=== PATIENT | female | born 1995 | race Caucasian/White ===

== ENCOUNTER → 2024-07-13 | Outpatient (REF) | payer BC | LOC: M PLALAB 10:11 | PROVIDERS: ATTEND Advanced Practice Midwife | DX: Z53.9 Procedure and treatment not carried out, unspecified reason (principal) ==

== ENCOUNTER → 2024-07-22 | Outpatient (CLI) | payer OTHER ==
[2024-07-22 13:21] LABS: HEMATOCRIT 40.4 % (36.0-47.0); MEAN CORPUSCULAR HEMOGLOBIN 29.5 pg (27.0-33.0); MEAN CORPUSCULAR HGB CONC 34.7 g/dl (32.0-36.5); MEAN CORPUSCULAR VOLUME 85.2 fl (80.0-96.0); PLATELET COUNT, AUTOMATED 333 10^3/uL (150-450); RED BLOOD COUNT 4.74 10^6/uL (4.00-5.40); WHITE BLOOD COUNT 10.2 10^3/uL (4.0-10.0)
[2024-07-22 14:09] LABS: HIV 1&2 SCREEN NEGATIVE (NEGATIVE)
[2024-07-22 14:17] LABS: HEPATITIS C VIRUS ABY INDEX 0.02 INDEX (<0.8)
[2024-07-22 16:57] LABS: Trichomonas vaginalis (AMP) NOT DETECTED (NEGATIVE)
[2024-07-22 17:21] LABS: GC DNA AMPLIFICATION NEGATIVE (NEGATIVE)
== END ==
LOC: M PLALAB 11:40
PROVIDERS: ATTEND Advanced Practice Midwife
DX: Z34.01 Encounter for supervision of normal first pregnancy, first trimester (principal)

== ENCOUNTER → 2024-09-22 | Outpatient (CLI) | payer OTHER | LOC: M WHC 10:04 | PROVIDERS: ATTEND Nurse Practitioner Family | DX: Z34.02 Encounter for supervision of normal first pregnancy, second trimester (principal); Z3A.20 20 weeks gestation of pregnancy ==

== ENCOUNTER → 2024-11-05 | Outpatient (CLI) | payer OTHER ==
[2024-11-05 14:39] LABS: PLATELET COUNT, AUTOMATED 285 10^3/uL (150-450)
[2024-11-05 14:44] LABS: GLUCOSE CHALLENGE TEST 1 HOUR 69 MG/DL (LESS THAN 140)
[2024-11-05 15:08] LABS: Trichomonas vaginalis (AMP) NOT DETECTED (NEGATIVE)
[2024-11-05 15:18] LABS: HIV 1&2 SCREEN NEGATIVE (NEGATIVE)
[2024-11-05 15:26] LABS: HEPATITIS C VIRUS ABY INDEX 0.03 INDEX (<0.8)
[2024-11-05 15:32] LABS: GC DNA AMPLIFICATION NEGATIVE (NEGATIVE)
== END ==
LOC: M PLALAB 09:12
PROVIDERS: ATTEND Nurse Practitioner Family
DX: Z34.80 Encounter for supervision of other normal pregnancy, unspecified trimester (principal)

== ENCOUNTER → 2025-01-13 | Outpatient (REF) | payer OTHER, BC | LOC: M SFHCWAGY 13:15 | PROVIDERS: ATTEND Nurse Practitioner Family | DX: Z34.03 Encounter for supervision of normal first pregnancy, third trimester (principal) ==

== ENCOUNTER 2025-02-11 15:13 | Inpatient (IN) | payer BC, OTHER ==
[~2025-02-11] VITALS: Ht 160 cm; Wt 88.1 kg
[2025-02-11 15:28] VITALS: BP 137/90
[2025-02-11] MEDS ORDERED: PRENTAB9 PO (15:29)
[2025-02-11] MEDS ORDERED: PEPC1TAB5 PO (15:29)
[2025-02-11] MEDS ORDERED: HOME MED LIST COMPLETE! XX SCH (15:30)
[2025-02-11] MEDS ORDERED: LIDOCAINE 1% MDV 20 ML VIAL INFIL PRN (16:35)
[2025-02-11] MEDS ORDERED: OXYTOCIN DRIP 30 UNITS in IV 1 EA IV PRN (16:35)
[2025-02-11 16:52] VITALS: BP 133/88
[2025-02-11] MEDS: miSOPROStol 50 MCG 1/2 TABLET SL SCH (16:52)
[2025-02-11 17:22] LABS: TOTAL PROTEIN,RANDOM URINE 20.2 MG/DL (0.0-14.0)
[2025-02-11 18:04] VITALS: BP 132/72
[2025-02-11 18:51] LABS: LDH LACTATE DEHYDROGENASE 228 U/L (120-246); PLATELET COUNT, AUTOMATED 243 10^3/uL (150-450)
[2025-02-11 18:52] LABS: ALT/SGPT 12 U/L (7.0-40); AST/SGOT 22 U/L (<34); CREATININE FOR GFR 0.66 MG/DL (0.55-1.30); GLOMERULAR FILTRATION RATE > 90.0 (>60)
[2025-02-11 19:25] LABS: HIV 1&2 SCREEN NEGATIVE (NEGATIVE)
[2025-02-11 19:32] LABS: HEPATITIS C VIRUS ABY INDEX < 0.02 INDEX (<0.8)
[2025-02-11 20:33] VITALS: BP 125/77
[2025-02-11] MEDS: FAMOTIDINE 20 MG TAB PO ONE (21:01)
[2025-02-11 22:01] VITALS: BP 125/76
[2025-02-12] VITALS (36 sets, daily range): BP systolic 109–162; BP diastolic 58–94
[2025-02-12] MEDS ORDERED: CARBOPROST TROMETHAMINE 250 MCG/ML AMP IM PRN (09:15)
[2025-02-12] MEDS ORDERED: TRANEXAMIC ACID INJection 1,000 MG in NS 100 ML IV PRN (09:15)
[2025-02-12] MEDS ORDERED: METHYLERGONOVINE MALEATE 0.2 MG/ML 1 ML VIAL IM PRN (09:15)
[2025-02-12] MEDS: FAMOTIDINE 20 MG TAB PO SCH (09:48)
[2025-02-12] MEDS ORDERED: HOME MED LIST COMPLETE! XX SCH (10:05)
[2025-02-12] MEDS ORDERED: ONDANSETRON 4MG 2ML VIAL IV PRN (12:40)
[2025-02-12] MEDS ORDERED: EPIDURAL/PCA KEYS XX PRN (12:40)
[2025-02-12] MEDS ORDERED: diphenhydrAMINE 50 MG/ML VIAL IV PRN (12:40)
[2025-02-12] MEDS ORDERED: NALOXONE INJ 0.4 MG/1 ML VIAL IV PRN (12:40)
[2025-02-12] MEDS ORDERED: FENTANYL 2 MCG/ML ROPIVACAINE 0.2% IN 0.9% NACL 100 ML IVBAG As Ordered ONE (12:47)
[2025-02-12] MEDS: FENTANYL/ROPIVACAINE/NACL BAG 100 ML EPIDURAL SCH (12:50)
[2025-02-12] MEDS: LR 1,000 ML IV SCH (12:55)
[2025-02-12] MEDS: LR 500 ML IV PRN (12:55)
[2025-02-12] MEDS: OXYTOCIN DRIP 30 UNITS in IV 1 EA IV SCH (16:35)
[2025-02-13] VITALS (11 sets, daily range): BP systolic 120–149; BP diastolic 63–82; O2SAT 96–98
[2025-02-13] MEDS ORDERED: MOM 30 ML SUSPENSION UDC PO PRN (01:25)
[2025-02-13] MEDS ORDERED: ANUSOL HC CREAM 30 GM TOP PRN (01:25)
[2025-02-13] MEDS ORDERED: CALCIUM CARBONATE 500 MG CHEW U/D PO PRN (01:25)
[2025-02-13] MEDS ORDERED: METHYLERGONOVINE MALEATE 0.2 MG TAB PO PRN (01:25)
[2025-02-13] MEDS ORDERED: RHOGAM 300MCG (1500IU) INJ IM SCH (01:25)
[2025-02-13] MEDS: ACETAMINOPHEN 500 MG TAB PO PRN (04:14)
[2025-02-13] MEDS: DIBUCAINE 1% OINTMENT 30 GM TOP PRN (04:43)
[2025-02-13] MEDS: DOCUSATE SODIUM 100 MG CAPSULE PO PRN (04:43)
[2025-02-13] MEDS: PRENATAL VITAMINS CHEWABLE TABLET PO SCH (07:56)
[2025-02-13] MEDS: IBUPROFEN 600 MG TAB PO PRN (07:57)
[2025-02-13] MEDS: ACETAMINOPHEN 325 MG TAB PO PRN (12:38)
[2025-02-13] MEDS: IBUPROFEN 800 MG TAB PO PRN (17:55)
[2025-02-14 06:00] VITALS: BP 129/78; O2SAT 98
[2025-02-15] MEDS ORDERED: MEASLES,MUMPS,RUBELLA VACCINE INJ (MMR-II) SC.IMMUN ONE (09:00)
== END 2025-02-14 12:20 | disposition home or self-care (01) | DRG 807 ==
LOC: M LDO 15:13 → M LDI 15:23 → M OBS 02-13 03:20
PROVIDERS: ADMIT Specialist; ATTEND Specialist
PROC: 10E0XZZ Delivery of Products of Conception, External Approach (ICD-10-PCS; principal; 2025-02-13)
PROC: 3E033VJ Introduction of Other Hormone into Peripheral Vein, Percutaneous Approach (ICD-10-PCS; 2025-02-13)
PROC: 0HQ9XZZ Repair Perineum Skin, External Approach (ICD-10-PCS; 2025-02-13)
PROC: 3E0P7GC Introduction of Other Therapeutic Substance into Female Reproductive, Via Natural or Artificial Opening (ICD-10-PCS; 2025-02-13)
DX: O13.4 Gestational [pregnancy-induced] hypertension without significant proteinuria, complicating childbirth (principal); Z37.0 Single live birth; Z3A.40 40 weeks gestation of pregnancy; O48.0 Post-term pregnancy; O70.0 First degree perineal laceration during delivery